=== PATIENT | female | born 1975 | race Caucasian/White ===

== ENCOUNTER 2017-11-07 19:41 | Emergency (ER) | payer OTHER, SELFPAY ==
[2017-11-07 20:03] VITALS: BP 105/67; PULSE 67; RESP 14; TEMP 36.3; O2SAT 100; BMI 22.3
--- NOTE | 2017-11-07 20:33 | ED_ITS ---
HPI - Neuro Symptoms/Deficit General Chief Complaint: Neuro Symptoms/Deficit Stated Complaint: FACE AND RIGHT TINGLING OF ARM AND CHEST COLD Time Seen by Provider: 11/07/17 20:33 Source: patient Mode of arrival: ambulatory Limitations: no limitations History of Present Illness HPI Narrative: The patient experienced onset of right arm weakness about 5:00 p.m.. With this there is no confusion or speech changes. She complains of numbness and tingling all over, and generalized weakness. She is visiting locally, she resides in [place]. She arrived here 2 days ago. 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 She is unsure if that means of stroke or aneurysm. She was anticoagulated for several months. She is not anticoagulated or on aspirin therapy at this time. She denies any recent illness. She has no chest pain or palpitations. She has no dizziness or syncope. On Anticoagulants: No Related Data Allergies Allergy/AdvReac Type Severity Reaction Status Date / Time tetracycline Allergy Intermediate Rash Verified 11/07/17 20:08 Review of Systems Review of Systems All systems reviewed & are unremarkable except as noted in HPI and below Constitutional Reports as per HPI, Denies chills, Reports fatigue, Denies fever(s), Denies headache(s) and Reports weakness (right arm) Eyes Denies change in vision, Denies eye discharge, Denies irritation and Denies loss of vision ENT Ears, Nose, Mouth, and Throat: Denies dysphagia, Denies vertigo, Denies dizziness and Denies headache(s) Cardiovascular Denies chest pain, Denies irregular heart rhythm, Denies lightheadedness, Denies palpitations, Denies dyspnea, Denies dyspnea on exertion and Denies orthopnea Respiratory Denies cough, Denies dyspnea and Denies dyspnea on exertion Gastrointestinal Gastrointestinal: Denies dysphagia, Denies diarrhea and Denies nausea Musculoskeletal Denies back pain, Reports muscle weakness and Reports tingling Integumentary/Breasts Denies erythema, Denies rash and Denies wounds Neurologic Denies vertigo, Denies dizziness, Denies headache(s), Denies loss of vision, Reports tingling and Reports weakness (right arm) Endocrine Reports fatigue and Denies palpitations [facility] Social History Smoking Status: Never smoker Exam Initial Vital Signs Initial Vital Signs: Vital Signs Temperature 97.4 F L 11/07/17 20:03 Pulse Rate 67 11/07/17 20:03 Respiratory Rate 14 11/07/17 20:03 Blood Pressure 105/67 11/07/17 20:03 Pulse Oximetry 100 11/07/17 20:03 Const General: cooperative and well developed Nutritional Appearance: well nourished Orientation: alert, awake, oriented x3 and not confused Limitations: other limitations (anxious) [facility] Head: normocephalic and atraumatic Nose: No nasal discharge Face and sinus: sinuses nontender, face symmetric and dry mucous membranes Mouth: oral mucosae normal and moist mucous membranes Teeth and gingiva: dentition normal Throat: tonsils normal and uvula midline Eyes General: appearance normal, both eyes and all related structures Eyelids: eyelids normal Conjunctivae: conjunctivae normal Sclera: sclerae normal Pupils: PERRL EOM: EOM intact bilaterally Neck Neck: normal visual inspection, trachea midline, No lymphadenopathy, No midline deformity and No JVD Lymphatic: No lymphedema Chest Chest: normal inspection of the chest Resp Effort & Inspection: normal respiratory effort, able to speak in complete sentences, no respiratory distress and no use of accessory muscles Auscultation: clear to auscultation bilaterally, no rales, no rhonchi and no wheezes Cardio Rate: regular rate Rhythm: regular rhythm Heart Sounds: no click, no gallops, no murmurs and no rubs Pulses: normal peripheral pulses GI Inspection: non-distended Palpation: soft, no hepatosplenomegaly, No guarding, No pulsatile mass and No tender Auscultation: normal bowel sounds Back/Spine/Pelvis Back: No CVA tenderness Cervical Spine: cervical ROM normal Thoracic/Lumbar Spine: thoracic and lumbar spine normal to inspection Skin General: no rashes or lesions noted Neuro General: alert, oriented x3 and no focal motor deficits Speech: speech normal Scores NIH Stroke Scale Level of Conciousness: Alert, keenly responsive Ask month/age: Answers both questions correctly. Open/close eyes, close hand: Performs both tasks correctly Best gaze horizontal: Normal Visual rebollar: No visual loss Facial palsy: Normal symetrical movement Left arm drift: No drift for full 10 sec Right arm drift: Drifts down, not to bed Left leg drift: No drift for full 10 sec Right leg drift: No drift for full 10 sec Limb ataxia: Absent Sensory on face/arms/legs: Normal, no sensory loss Best language: No aphasia, normal Dysarthria: Normal Extinction or inattention: No abnormality Total NIH Stroke scale score: 1 Course Orders Ordered: ED Orders 11/07/17 20:42 CT head/brain wo con Stat EKG-12 Lead Stat 11/07/17 20:44 XR chest 1V Stat 11/07/17 21:15 Basic Metabolic Panel Stat Complete Blood Count MAN DIFF Stat Partial Thromboplastin Time Stat Prothrombin Time INR Stat Troponin I Stat Sodium Chloride (Normal Saline 0.9%) 1,000 mls @ 150 mls/hr IV CONT SARAHY Last Admin: 11/07/17 21:16 Dose: 150 mls/hr Discontinued Medications Aspirin (Aspirin Chew) 324 mg PO NOW ONE Stop: 11/07/17 22:16 Last Admin: 11/07/17 22:23 Dose: 324 mg Vital Signs - 8 hr 11/07/17 20:03 Temperature 97.4 F L Pulse Rate 67 Respiratory Rate 14 Blood Pressure 105/67 Pulse Oximetry 100 MDM - Neuro Symptoms/Deficit Lab Data Result diagrams: 11/07/17 21:15 11/07/17 21:15 Lab Results 11/07/17 11/07/17 11/07/17 Range/Units 21:15 21:15 21:15 WBC 10.3 (4.5-11.0) X10^3/uL RBC 4.54 (4.0-5.2) X10^6/uL Hgb 12.3 (12.0-16.0) g/dL Hct 37.2 (36-46) % MCV 81.9 (80-100) fL MCH 27.2 (26-34) PG MCHC 33.2 (30-36) % RDW 16.2 H (11.6-14.8) % Plt Count 452 H (150-400) X10^3/uL PT 11.3 (10.1-12.7) SECONDS INR 1.0 (0.9-1.3) APTT 35 (26.4-36.2) SECONDS Sodium 139 (137-145) mmol/L Potassium 5.0 (3.4-5.1) mmol/L Chloride 102 (98-107) mmol/L Carbon Dioxide 26 (22-32) mmol/L BUN 10 (7-17) mg/dL Creatinine 0.80 (0.52-1.04) mg/dL Estimated GFR > 60.0 (>60) mL/min BUN/Creatinine Ratio 12.5 (6-22) Glucose 118 H (70-100) mg/dL Calcium 9.3 (8.4-10.2) mg/dL Troponin I < 0.012 (0.01-0.034) ng/mL Imaging Data CT scan - head: Radiologist's impression: Normal. Chest x-ray: Radiologist's impression: Normal ECG Data Attestation: I personally reviewed and interpreted this ECG as follows: ( EKG: Normal sinus rhythm rate 60 bpm. No ectopy. No acute ST T wave changes. Normal intervals.) MDM Narrative Medical decision making narrative: Patient's symptoms have resolved. She tells me she has had multiple head CTs and MRIs in [place] regarding similar events. She has thyroid disease. She has had a history of anxiety and panic attacks, but is not currently treated. We discussed the tingling sensation she had in her face and bilaterally. She understands that that can be consistent with anxiety. She is referred back to her primary care doctor. Discharge Plan Departure Patient Disposition: Home, Self-Care Clinical Impression: Arm weakness Instructions: Anxiety Disorders Activity Restrictions/Additional Instructions: There is no evidence of stroke. As you have noted to her now feeling normal. Upon returning home, talked to her doctor about anxiety. That may be a component of the recurrent symptoms You have experienced. While here, return to the ER if symptoms exacerbate.
--- NOTE | 2017-11-07 20:42 | DI.CT.S_ITS ---
PROCEDURE: CT HEAD/BRAIN WO CON INDICATIONS: Right arm weakness TECHNIQUE: Noncontrast 4.5 mm thick angled axial sections acquired from the foramen magnum to the vertex, with coronal and sagittal reformats. For radiation dose reduction, the following was used: automated exposure control, adjustment of mA and/or kV according to patient size. COMPARISON: None. FINDINGS: Image quality: Excellent. CSF spaces: Basal cisterns are patent. No extra-axial fluid collections. Ventricles are normal in size and shape. Brain: No midline shift. No intracranial masses or hemorrhage. Harmon-white matter interface is normal. Skull and face: Calvarium and visualized facial bones are intact, without suspicious lesions. Sinuses: Visualized sinuses and mastoids are clear. IMPRESSION: Normal head CT exam. Dictated by: Mirza Avalos M.D. on 11/07/2017 at 21:18 Approved by: Mirza Avalos M.D. on 11/07/2017 at 21:20
--- NOTE | 2017-11-07 20:44 | DI.RAD.S_ITS ---
PROCEDURE: XR CHEST 1V INDICATIONS: Possible CVA TECHNIQUE: One view of the chest was acquired. COMPARISON: None. FINDINGS: Surgical changes and devices: None. Lungs and pleura: No pleural effusions or pneumothorax. Lungs are clear. Mediastinum: Mediastinal contours appear normal. Heart size is normal. Bones and chest wall: No suspicious bony lesions. Overlying soft tissues appear unremarkable. IMPRESSION: No acute cardiopulmonary disease. Dictated by: Mirza Avalos M.D. on 11/07/2017 at 21:12 Approved by: Mirza Avalos M.D. on 11/07/2017 at 21:18
[2017-11-07] MEDS: SODIUM CHLORIDE 0.9% 1,000 ML 150 ML IV (21:16)
[2017-11-07 21:18] LABS: Hematocrit 37.2 % (36-46); Hemoglobin 12.3 g/dL (12.0-16.0); Mean Corpuscular HGB Conc 33.2 % (30-36); Mean Corpuscular Hemoglobin 27.2 PG (26-34); Mean Corpuscular Volume 81.9 fL (80-100); Platelet Count 452 X10^3/uL (150-400); Red Blood Cell Count 4.54 X10^6/uL (4.0-5.2); Red Cell Distribution Width 16.2 % (11.6-14.8); White Blood Cell Count 10.3 X10^3/uL (4.5-11.0)
[2017-11-07 21:26] LABS: Prothrombin Time 11.3 SECONDS (10.1-12.7)
[2017-11-07 21:29] LABS: PTT Partial Thromboplastin Tim 35 SECONDS (26.4-36.2)
[2017-11-07 21:30] LABS: BUN Creatinine Ratio 12.5 (6-22); Blood Urea Nitrogen 10 mg/dL (7-17); Calcium 9.3 mg/dL (8.4-10.2); Carbon Dioxide 26 mmol/L (22-32); Chloride 102 mmol/L (98-107); Estimated Glomerular Filt Rate > 60.0 mL/min (>60); Glucose 118 mg/dL (70-100); HEMOLYSIS < 15 (0-50); Sodium 139 mmol/L (137-145)
[2017-11-07 21:51] LABS: Troponin I < 0.012 ng/mL (0.01-0.034)
[2017-11-07] MEDS: ASPIRIN 81 MG TAB 324 MG PO (22:23)
[2017-11-07 22:58] VITALS: BP 105/66; PULSE 80; RESP 16; TEMP 37.1; O2SAT 99
[2017-11-07 23:00] LABS: Neutrophils Absolute Manual 6695 /uL (3000-5900); Total Cells Counted 100
== END 2017-11-07 22:58 | disposition home or self-care (01) ==
PROVIDERS: Emergency Provider Emergency Medicine
DX: R29.898 Other symptoms and signs involving the musculoskeletal system (principal)
CPT/HCPCS: 36591; 70450; 71045; 80048; 81003; 82962; 84484; 85025; 85610; 85730; 93005; 93010; 96360; 96361; 99284; 99285; 99291